=== PATIENT | female | born 1935 | race Caucasian/White ===

== ENCOUNTER 2020-02-12 03:01 | Inpatient (IN) | payer OTHER ==
[~2020-02-12] VITALS: Ht 170.2 cm; Wt 57.6 kg
[~2020-02-12 03:01] MED LIST: COUMADIN 10MG T10 M1 PO; COUMADIN 1MG TAB1 M1 PO; FUROSEMIDE 40 M40 M1 PO; HYDROCODONE-AP1 EACH PO; K-DUR 20 MEQ T20 MEQ PO; LOVENOX; LOVENOX SC; NORCO 10-325 T1 EACH PO; NORCO 5-325 TA1 EACH PO; POTASSIUM20; RESTORIL30 MG PO; TYLENOL 3; WATER PILL
[2020-02-12 03:04] VITALS: BP 164/84
[2020-02-12 05:37] LABS: APTT 19.1 Seconds (24.5-32.8); PROTIME 9.5 Seconds (9.3-11.4)
[2020-02-12 05:40] LABS: ABSOLUTE NEUTROPHILS 4.7 thou/uL (1.4-8.2); BASOPHILS 0.9 % (0.0-2.0); CALCIUM 9.3 mg/dL (8.5-10.1); CREATININE 0.9 mg/dL (0.6-1.0); EOSINOPHILS 3.2 % (0.0-3.0); HEMATOCRIT 43.4 % (37.0-47.0); HEMOGLOBIN 14.3 gm/dL (12.0-15.0); LYMPHOCYTES 24.3 % (24.0-44.0); MCH 31.6 pg (26.0-34.0); MCHC 32.9 g/dL (28.0-37.0); MCV 96.2 fL (80.0-100.0); MONOCYTES 9.1 % (1.0-8.0); PLATELET COUNT 262 thou/uL (150-400); POLYS 62.5 % (36.0-66.0); POTASSIUM 3.9 mmol/L (3.5-5.1); RBC 4.51 mil/uL (4.20-5.00); RDW 13.3 % (10.5-14.5); WBC 7.5 thou/uL (4.0-11.0)
[2020-02-12 06:17] VITALS: BP 133/61
[2020-02-12 07:13] VITALS: BP 133/65
[2020-02-12 07:54] VITALS: BP 128/71
[2020-02-12 11:31] VITALS: BP 128/71
== END 2020-02-12 12:16 | disposition home or self-care (01) | DRG 560 ==
LOC: ER 03:01 → EROBS 05:28 → 4S 07:26
PROVIDERS: Emergency Medicine; ADMIT Hospitalist; ATTEND Hospitalist
PROC: 0SSBXZZ Reposition Left Hip Joint, External Approach (ICD-10-PCS; principal; 2020-02-12)
DX: T84.021A Dislocation of internal left hip prosthesis, initial encounter (principal); E87.1 Hypo-osmolality and hyponatremia; Z96.643 Presence of artificial hip joint, bilateral; F32.9 Major depressive disorder, single episode, unspecified; Z96.642 Presence of left artificial hip joint; E78.5 Hyperlipidemia, unspecified; Z90.710 Acquired absence of both cervix and uterus; Z95.828 Presence of other vascular implants and grafts; Z86.711 Personal history of pulmonary embolism; Z86.718 Personal history of other venous thrombosis and embolism; Z87.891 Personal history of nicotine dependence; W18.39XA Other fall on same level, initial encounter; Y93.89 Activity, other specified; Y92.89 Other specified places as the place of occurrence of the external cause; Y99.8 Other external cause status
CPT/HCPCS: 10195

== ENCOUNTER 2020-09-25 14:01 | Inpatient (IN) | payer OTHER ==
[2020-09-25 14:38] VITALS: BP 138/68
--- NOTE | 2020-09-25 15:40 | NUR ---
PATIENT 85 YEAR OLD FEMALE ARRIVING TO [facility] - FROM [facility]. PSYCHIATRIC PROBLEM IS DEMENTIA WITH COMBATIVENESS WITH STAFF, REFUSING MEDICATIONS, ATTEMPTING MULTIPLE ELOPEMENTS, NOT SLEEPING AT NIGHT AND VOICING THAT SHE HAD BEEN KIDNAPPED FROM LIVING AT HOME. PATIENT EXTREMELY CONFUSED AND DISCONTENTED WITH FACILITY SHE WAS AT. PATIENT ALERT TO SELF - AMBULATORY - WANDERS ABOUT UNIT FIXATED ON DEPARTING. PATIENT DID NOT KNOW WHAT YEAR IT WAS 1968 AND PRESIDENT MIRIAM IN OFFICE. VERY CONFUSED - ASSESSED AND HEART STRONG AND STEADY. LUNGS CLEAR ON AUSCULTATION. LOWER EXTREMITIES BILATERALLY HAVE RASH AND DISCOLORATION. STATES EXTREMELY ITCHY. PATIENT AMBULATORY - SELF CARE - NO PAIN WHEN ASSESSED. PATIENT SEEN BY NURSE PRACTIONER AND DR. YANCEY. ORDERS PLACED AND MEDICATIONS PLACED.
[2020-09-25 20:57] VITALS: BP 152/85
--- NOTE | 2020-09-26 04:30 | NUR ---
PT CONTINUOUSLY REQUESTED TO "GET OUT" AND "GO HOME". PT HAS HX OF ELOPEMENT RISK. AFTER CALMING PT DOWN AND GETTING HS MEDS TO HER, SHE EVENTUALLY WENT TO BED FOR THE MOST OF THE NIGHT. REMAINS ALERT TO SELF. WILL CONTINUE TO MONITOR.
[2020-09-26 06:10] LABS: CHOLESTEROL 216 mg/dL (<200); HDL CHOLESTEROL 74 mg/dL (>40); LDL CHOLESTEROL 127 mg/dL (<100); TC:HDL 2.9 Ratio (Not establshd); TRIGLYCERIDE 79 mg/dL (<150); VLDL 16 mg/dL (<40)
[2020-09-26 06:11] LABS: SERUM ASSESSMENT Clear
[2020-09-26 07:12] LABS: FOLIC ACID 54.2 ng/mL (8.6-58.9)
[2020-09-26 09:24] VITALS: BP 122/63
[2020-09-26 13:11] VITALS: BP 122/63
--- NOTE | 2020-09-26 15:41 | NUR ---
Assumed pt care at 0700. pt was in the day room alert. Alert and oriented to self. Assessments completed, vss. Denies si/hi, denies pain. Took meds whole, no difficulty noted. Pt IS VERBALLY aggressive, pt redirected. Pt ambulates with a steady gait. Pt lyes on the day room couch. pt was redirected. No sign of acute distress noted upon assessments. Pt family visited and pt got irritable. pt was redirected. AMBULATES THE UNIT HALLWAY. at THIS TIME PT IS IN THE DAY ROOM. wILL CONTINUE TO MONITOR.
--- NOTE | 2020-09-26 17:31 | NUR ---
2424 PATIENT WAS BEING INTRUSIVE DURING VISITING HOURS INTERUPTING OTHER PATIENTS VISIT. WE TRIED TO REDIRECT PATIENT SHE BECAME AGGRESSIVE HITTING STAFF AND SCREAMING. WE HAD TO CALL SECURITY TO HELP WITH GETTING PATIENT TO HER ROOM. I CALLED [employer] SERVICER [employer] SHE GAVE ME AN ORDER FOR OLANZAPINE 5 MG TO HELP CALM DOWN. WILL CONTINUE TO MONITOR PATIENT FOR SAFETY AND BEHAVIORS.
[2020-09-26 20:29] VITALS: BP 167/50
[2020-09-26 20:31] VITALS: BP 163/74
[2020-09-27 05:36] LABS: GLYCOHEMOGLOBIN (HGB A1C) 5.6 % (4.8-5.6)
--- NOTE | 2020-09-27 06:14 | NUR ---
09-26-20 CARE TRANSFERRED 0. LATER PT AAOX2, VSS, RR EVEN AND NONLABORED ON RA. PT DENIED PAIN AND SI/HI. PT REMAINED CALM AND COOPERATIVE DURING NURSING ASSESSMENT. DURING MEDICATION ADMIN PT REFUSED MEDICATION REPORTING "WE ARE TRYING TO KILL HER" PT PRESENTS AGITATED WITH IRRITABLE, A 2ND ATTEMPT AND PT AGITATION INCREASED. HCP Young MENSAH, INSTRUCTOR OF NURSING CONTACTED AND ORDERS RECEIVED. PT HAS BEEN COOPERATIVE AND REMAINED CALM AND SAT QUIETLY IN DAY ROOM. PT WILL CONTINUE TO BE MONITOR PER [facility] PROTOCOL.
[2020-09-27 08:00] VITALS: BP 142/74
--- NOTE | 2020-09-27 12:29 | NUR ---
SITTIING ALONE WITH BACK TO [facility]ERS AND NOT INTERACTING WITH OTHERS -INITIALLY WAS ABRUPT,IRRITABLE WITH THIS NURSEEXPRESSING FRUSTRATION OVER AMOUNT OF QUESTIONS ASKED. "CAN'T YOU READ THE LAST GIRLS NOTE"DESCRIBES MOOD "GOOD" AND DENIES SI/SH/HI. AFFECT IS NOTED TO BE CONSTRICTED-HOWEVER WAS BRIGHTER CONVERSATION PROGRESSED WITH THIS NURSE. COMPLIENT WITH MEDS. DENIES C/O PAIN. RESPONSES ARE
--- NOTE | 2020-09-27 16:51 | NUR ---
CONTINUES TO BE WITHDRAWN-STAYING MOSTLY IN ROOM OR SITTING IN BACK OF GROUP ROOM BY SELF. CONTINUES TO DENY COMPLAINTS.GAIT STEADY. APPETITE GOOD. DID APPROACH DESK BEFORE SUPPER UPSET THAT ROOMATE HAD BEEN BROUGHT TO ROOM AND WAS SNORING.-OTHERWISENO ACUTE AGITATION OR BEHAVIORAL ISSUES NOTED
--- NOTE | 2020-09-27 17:56 | NUR ---
SW completed psychosocial assessment and tx plan. SW team will remain available while on the unit.
[2020-09-27 20:15] VITALS: BP 138/65
[2020-09-27 20:30] VITALS: BP 138/65
--- NOTE | 2020-09-28 01:25 | NUR ---
PATIENT WAS UP IN THE DINING ROOM THIS EVENING. SHE WAS ANXIOUS AND FRUSTRATED BECAUSE OF ANOTHER PATIENT THAT HAS BEEN HOLLERING ALL DAY AND CONTINUING. PATIENT REMAINED CALM. SHE TOOK HER HS MEDS WHOLE WITH WATER. SHE WAS COOPERATIVE. SHE NEEDED TO BE SHOWN HER ROOM. SHE IS A/0X1-2. SHE IS CONTINENT. SHE WALKS WITH STEADY GAIT. DENIES SI/HI/AVH. ROUTINE ROUNDS TO ASSESS SAFETY AND STATUS OF PATIENT.
[2020-09-28 08:43] VITALS: BP 152/63
--- NOTE | 2020-09-28 11:29 | NUR ---
Nutrition: pt admitted to H unit dx dementia with behaviors. Pt voices stable weights. Weight trends per hx showing increase since 2020. Will follow trends. Intake highly variable but averaging > 60% of meals. Noted HLD. Cholesterol 216, LDL 127. If pt consistently eating > 75% of meals, consider heart healthy diet. Pt voices no nutrition concerns. Low risk.
--- NOTE | 2020-09-28 14:08 | NUR ---
HORACE contacted [facility] and obtained the fax number of [phone] to send updates. HORACE faxed updates. SW team will continue to follow pt during her stay on this unit.
--- NOTE | 2020-09-28 14:29 | NUR ---
REFUSED AM MEDICATIONS AND ASSESSMENT. IRRITABLE/DYSPHORIC MOOD-MULTIPLE NEGATIVE COMMENTS DURING BREAKFAST AND GROUP TIME-NO INIGHT INTO OWN BEHAVIORS STATING "THE ONLY PROBLEM I HAVE IS BEING HERE-I WAS JUST FINE UNTIL I GOT TO THIS PLACE" ANGRY FACIAL EXPRESSION. SMELLS STRONGLY OF BODY ODOR. CONTINUES TO REFUSE MEDICATIONS DESPITE MULTIPLE ATTEMPTS DESPITE BEING TOLD THAT IT WAS ORDERED THAT SHE GET A SHOT IF SHE CONTINUED TO REFUSE. SECURITY CONTACTED AT 1330 AND ZYPREXA 5MG ADMINISTERD IM IN LEFT DELTOID-YELLING LOUDLY DURING SHOT. DID REQUEST TO GO BACK TO ROOM AND ESCORTED TO ROOM BY NURSING STAFF.
[2020-09-28 19:48] VITALS: BP 162/74
--- NOTE | 2020-09-29 03:04 | NUR ---
PATIENT HAS BEEN SLEEPING ALL SHIFT SINCE ASSUMED CARE AT 1900. PATIENT WAS VERY SEDATED FROM INJECTION EARLIER IN DAY AND WAS NOT ABLE TO TAKE HER HS MEDS. HER VSS. AND RESPIRATIONS EVEN AND UNLABORED. NO BEHAVIORS TONIGHT.
[2020-09-29 09:21] VITALS: BP 142/70
--- NOTE | 2020-09-29 18:30 | NUR ---
Assumed patient care at 0700, sitting in the day room, patient was unpleasant, stated she does't belong here and will like to leave, she refused all her morning meds,doctor notify, IM was given, son visited in the morning and told the nurse that his mother said "she will kill herself by taking lots of pills" two of her daughters came to visit and she refused to visit with them. Assessment completed, lungs clear, bs active, vss. patient denies si/hi at this time, will cntinue to monitor
[2020-09-29 19:51] VITALS: BP 143/61
--- NOTE | 2020-09-30 05:18 | NUR ---
09-29-20 CARE TRANSFERRED 1899. LATER PT AAOX3, VSS RR EVEN AND NONLABORED ON RA. PT DENIES SI/HI AND PAIN. PT PRESENTS PLESANT, CALM AND COOPERATIVE. PT REPORTS SHE IS READY TO LEAVE HOSPITAL. DURING MEDICATION ADMIN PT HAD NO DIFFICULTIES TAKING MEDICATION WHOLE WITH WATER. PT ATE 100% OF HS SNACK. LATER PT AWOKE AND HAD PICKED SCABBED ON NOSE, SUPERFICIAL WOUND, CLEANED WITH NS AND COVERED WITH CLEAN BANDAID, PT WAS A LITTLE CONFUSED AND THOUGHT WE WERE AT A HOTEL, PT WAS EASILY REORIENTED TO HOSPITAL, AND STATED "I MUST HAVE BEEN DREAMING, WAS GETTING READY TO GO TO A CONSERT". PT BED WAS ADJUSTED FOR COMFORT, LOCKED, LOWEST POSITION AND ALARM ON. PT WILL CONTINUE TO BE MONITOR PER [facility] PROTOCOL.
[2020-09-30 08:29] VITALS: BP 136/76
[2020-09-30 12:04] LABS: ALBUMIN 3.2 g/dL (3.4-5.0); CREATININE 0.9 mg/dL (0.6-1.0); POTASSIUM 4.4 mmol/L (3.5-5.1); TOTAL BILIRUBIN 0.2 mg/dL (0.2-1.0); TOTAL PROTEIN 6.9 g/dL (6.4-8.2)
--- NOTE | 2020-09-30 18:16 | NUR ---
0700 ASSUMED CARE OF PATIENT, PATIENT IN BED AT THAT TIME. PATIENT AMB WITH WITH STEADY GAIT, OUT TO DAYROOM FOR BREAKFAST. MEDICATION TAKEN WHOLE WITHOUT DIFFICULTY. PATIENT DENIES PAIN, LS CLEAR, BS ACTIVE. PATIENT CALM AND COOPERATIVE THIS AM. PATIENT AGREES TO ACCEPT VISITORS TODAY. REQUEST A SHOWER, SHOWER COMPLETED THIS AFTERNOON. PATIENT SITTING QUIETLY AT TABLE AT THIS TIME. VS 136/76, 67, 18, 97.3, 94% DENIES SI/HI.
[2020-09-30 19:55] VITALS: BP 148/63
--- NOTE | 2020-10-01 05:11 | NUR ---
09-30-20 CARE TRANSFERRED 1899. LATER PT AAOX2, VSS, RR EVEN AND NONLABORED ON RA. PT DENIES SI/HI AND PAIN. PT PLEASANT, CALM AND COOPERATIVE. DURING MEDICATION PT HAD NO DIFFCULTIES. PT WILL CONTINUE TO BE MONITR PER [facility] PROTOCOL.
[2020-10-01 09:59] VITALS: BP 149/82
--- NOTE | 2020-10-01 11:59 | NUR ---
RT Progress Note- Clair has made advances towards goals this week. She has been present in most recreation therapy groups and is tolerating of discussion (whereas upon admission, she would respond irritably.) Clair is able to participate in groups with occasional reorienting and prompting. NATIONAL SALES MANAGER will encourage continued participation and progress towards goals.
--- NOTE | 2020-10-01 13:25 | NUR ---
Assumed pt care at 0700. pt was in her room awake. ALERT and oriented to person. Assessments completed, vss. active bowel sound, denies si/hi denies pain.Took meds whole, no difficulty noted. Ambulates with a steady gait. Calm and cooperative with care. Makes need known to staff. pt was confused and irritable during lunch but was redirected. No sign of acute distress noted upon assessments. No Bowel Movement noted this shift. Pt family visited during [id number] VISITING hOURS. At this time pt is in the day room. WILL CONTINUE TO MONITOR PT.
[2020-10-01 19:33] VITALS: BP 135/66
[2020-10-01 19:40] VITALS: BP 135/66
--- NOTE | 2020-10-02 00:14 | NUR ---
Assumed care on 10/01/20 @ 1900, pleasant, oriented to person and almost got the date correct, saying the year is 1970. I am Waivering back and forth with alzheimers. also reports I don't have a colon, it is stitched the two ends together. Reports has had ice cream for a snack. Takes meds whole and provided Tylenol 650mg for 6/10 general pain. HRRR, Lungs CTA, ABD n x 4Q, reports BM on 10/01/20.
[2020-10-02 10:21] VITALS: BP 153/82
--- NOTE | 2020-10-02 10:51 | NUR ---
0700 ASSUMED CARE OF PATIENT, PATIENT IN BED AT THAT TIME. AMB TO DAYROOM WITH STEADY GAIT. DENIES NEEDS, PATIENT CALM, MED COMPLIANT. ATE 95% OF BREALFAST. PATIENT CALM AND COOPERATIVE. NO GOALS OR CONCERNS VOICED. PATIENT CALM AT THIS TIME.
--- NOTE | 2020-10-02 17:38 | NUR ---
[facility][phone][facility] regarding discharge for pt. Informed pt. will be discharged Monday. Transportation will be arranged by through [employer]. Phone call to [facility] arranging transportation for pt. for Monday at 11:00am. Confirmation # [phone]
--- NOTE | 2020-10-02 19:01 | NUR ---
PATIENT TO NURSES STATION ASKING TO LEAVE AND ASKING HOW MUCH MONEY IS OWED. PATIENT STATES "THEY DID NOT HAVE A BED FOR ME SO I NEED TO GET OUT OF HERE". RN REORIENTED PATIENT, PATIENT CONFUSED AND UNABLE TO UNDERSTAND AT THIS TIME. PATIENT GIVEN ROOM NUMBER AND WAS OK WITH THAT. DENIES NEEDS AT THIS TIME.
[2020-10-02 19:09] VITALS: BP 152/85
[2020-10-02 21:57] VITALS: BP 152/85
[2020-10-03 08:00] VITALS: BP 150/74
--- NOTE | 2020-10-03 13:33 | NUR ---
PATIENT CARE ASSUMED BY 0700, WAS IN BED SLEEPING AND LATER CAME OUT FOR BREAKAST, AMB WITHOUT ANY DEVICE, ALERT TO SELF AND DISORIENTED TO PLACE AND TIME WHEN ASKED, ATE 100% OF HER MEALS, TOOK MEDICATION WHOLE, SHE WAS CALM AND PLEASANT DURING ASSESSMENT, LUNGS CLEAR, BS ACTIVE, DENIES SI/HI.
[2020-10-03 19:21] VITALS: BP 141/50
--- NOTE | 2020-10-03 23:23 | NUR ---
RESUMED PATIENT CARE AT 1900, PATIENT LYING IN BED AT THAT TIME. EYES CLOSED, THOUGH EASILY AWOKEN. SAT UP ON SIDE OF BED FOR ASSESSMENT AND TOOK MEDS WHOLE WITHOUT DIFFICULTY. DENIES PAIN/SI/HI. DOES C/O OF SOME SADNESS AND DEPRESSION AND STATES "I JUST WANT TO GO HOME". PATIENT A&OX1, PLEASANT AND COOPERATIVE.
[2020-10-04 08:52] VITALS: BP 123/53
[2020-10-04 09:38] VITALS: BP 123/53
--- NOTE | 2020-10-04 11:55 | NUR ---
PATIENT CARE ASSUMED AT 0700 - SITTING IN DINING TATUM AT CHANGE OF SHIFT. PATIENT STATED HAD GOOD NIGHT. WAS HESITANT TO [facility] POSITIVITY ABOUT BEING DISCHARGED TOMORROW. ATE WELL FOR BREAKFAST - COMPLIANT WITH MEDICATIONS. HEART RATE STRONG AND STEADY. LUNGS CLEAR ON AUSCULTATION - EDEMA NOTED BILATERALLY ON LOWER EXTREMITIES- PATIENT HAS NO PAIN DISCOMFORT - HAD BOWEL MOVEMENT 10/03/20 - WILL CONTINUE TO MONITOR PATIENT FOR SAFETY AND TO ADDRESS ANY CONCERN THAT MAY DEVELOP.
[2020-10-04 19:39] VITALS: BP 117/65
[2020-10-04 20:00] VITALS: BP 117/65
--- NOTE | 2020-10-05 03:22 | NUR ---
PATIENT SAT UP IN DINING ROOM THIS EVENING AND STAYED TO HERSELF. SHE WAS CALM UNTIL ASKED HOW SHE WAS DOING AND SHE BEGAN STATING THAT SHE NEEDED TO GO HOME. EXPLAINED THAT SHE WOULD BE DISCHARGING TOMORROW IF ALL WENT WELL TONIGHT. SHE CALMED AND TOOK HER MEDS. SHE DENIES PAIN. NO SI/HI/AVH NOTED. PT DID ASK FOR SOMETHING FOR SLEEP. SHE WAS GIVEN PRAMIPEXOLE 1MG PO AT HS FOR RESTLESS LEG. SHE HAS BEEN UP A COUPLE OF TIMES IN NIGHT AND WALKED OUT INTO TATUM AND IN ROOM AND THEN BACK TO BED. SHE IS A/0X 1-2. SHE AMBULATES ON HER OWN AND IS STEADY ON HER FEET. ROUTINE ROUNDS TO ASSESS SAFETY AND STATUS OF PATIENT.
[2020-10-05 08:51] VITALS: BP 149/73
[2020-10-05] MEDS ORDERED: ARICEPT10 M1 PO (08:58)
[2020-10-05] MEDS ORDERED: LIPITOR40 MG PO (08:59)
[2020-10-05] MEDS ORDERED: BAYER CHEWABLE81 MG PO (09:00)
[2020-10-05] MEDS ORDERED: DEPAKOTE SPRIN125 MG PO (09:02)
[2020-10-05] MEDS ORDERED: ZOLOFT 50 MG TA50 MG PO (09:02)
[2020-10-05] MEDS ORDERED: K-DUR 20 MEQ T20 MEQ PO (09:03)
[2020-10-05] MEDS ORDERED: SEROQUEL 25 MG25 M1 PO (09:03)
[2020-10-05] MEDS ORDERED: CALTRATE-600 W1 EACH PO (09:04)
[2020-10-05] MEDS ORDERED: LASIX 40 MG TAB40 M1 PO (09:04)
[2020-10-05] MEDS ORDERED: VITAMIN D325 MC1 PO (09:05)
--- NOTE | 2020-10-05 12:45 | NUR ---
OHRACE D/C NOTE HORACE faxed discharge docs to [facility]. SW will file docs and confirmation pg in pt's hospital file. No other needs for SW team to address at this time.
--- NOTE | 2020-10-05 15:02 | NUR ---
Assumed pt care at 0700. pt was in her room sleeping. Alert and oriented to person and situation. Denies si/hi, Denies pain . Ambulates with a steady gait. Took meds whole, no difficulty noted. Calm and cooperative with care at assessments. 1120 pt was d/c with belongings, d/c instruction, d/c summary and labs. AT 1047 Report was called to Iliana at [facility]. AT 1422 d/c instruction was faxed per request from [facility]. WITH FULL INSTRUCTION FROM [employer]. pt was transport by [employer].
--- NOTE | 2020-10-06 00:23 | D ---
[facility] [place] [address] DISCHARGE SUMMARY Name: JOHN RANDALL Room #: 523B-[facility] IN M.R.#: [id number] Admission: 09/25/20 Attend Phys: Maryan Pruitt MD Discharge: 10/05/20 Date of : 39 Report #: [id number] THIS REPORT FOR: cc: [facility] - [facility] physician unknown [facility] - Clinic physician unknown Gume Wilson DO ~ DATE OF SERVICE: 10/05/2020 INPATIENT PSYCHIATRIC DISCHARGE SUMMARY ATTENDING PSYCHIATRIST: At the time of discharge, Gume Wilson DO GUI DEVELOPER: At time of discharge, Jaquelin Hernandez M.D. 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 MEDICAL COMORBIDITIES: As follows: History of depression, anxiety, hypertension, history of DVT, PE, status post IVC filter, history of recurrent falls, hyperlipidemia. The patient is discharging to [facility] to be performed by receiving facility. The patient requires memory care. This is a long-term care placement. ACTIVITY LEVEL: As tolerated. DIET: Regular diet. DISCHARGE MEDICATIONS: Are as follows: Donepezil 10 mg oral at bedtime for cognitive enhancement, atorvastatin 40 mg oral at bedtime for hyperlipidemia, aspirin 81 mg oral daily for heart protection, Depakote sprinkles 250 mg oral twice daily for mood stabilization, sertraline 125 mg oral daily for depression, Seroquel 25 mg oral twice daily for mood stabilization, potassium chloride 20 mEq p.o. daily for supplementation, Lasix 40 mg oral daily for hypertension, calcium carbonate with vitamin D3, Caltrate 600 with vitamin D 1 tab twice daily, cholecalciferol 1000 International Units oral daily for supplementation. LABORATORY DATA: Significant laboratories this admission, hematology on 09/25, H and H 13.3 and 39.7, white count 5.6, platelet count 204. Chemistry: Sodium 142, potassium 4.4, chloride 107, bicarbonate 28, anion gap 7, BUN 15, creatinine 0.9, estimated GFR 60, glucose 102. A1c 5.6, calcium 9, total bilirubin 0.2, direct bilirubin less than 0.1, AST 20, ALT 24, alkaline phosphatase 103. CK 155. Ammonia less than 10. The CK and troponin were old labs, so we canceled those. Additional laboratories; albumin 3.2, total protein 6.9, triglycerides 79, total cholesterol 216, LDL 127. Vitamin B12 429. Folate 54.2. TSH 2.244. Urinalysis showed trace ketones, otherwise normal. Toxicology was negative. Depakote level was 46 on 10/01. COVID-19 Iniguez serology was negative on 09/25. [address] [address] DISCHARGE SUMMARY Name: JOHN RANDALL Room #: 523B-B [facility] IN M.R.#: [id number] Admission: 09/25/20 Attend Phys: Maryan Pruitt MD Discharge: 10/05/20 Date of : 39 Report #: [id number] REASON FOR ADMISSION: Back on 09/25 or so, 85-year-old female sent out from [facility] due to refusing medications, increasing combativeness with care, is not eating. HOSPITAL COURSE: The patient was admitted to Geriatric Psychiatry Unit. She was continued on Seroquel 12.5 mg p.o. b.i.d., which was further titrated to 25 mg b.i.d., sertraline continue at [address] Pruitt resumed her care on 09/28. Initially, she had been aggressive over the first weekend of admission, she did not have recollection of this. As the week progressed, she felt improved. Not angry at her family. No aggressive behaviors. CONDITION AT DAY OF DISCHARGE: Stable. Not suicidal or homicidal. VITAL SIGNS: At time of discharge, temperature 36.3, pulse 61, respirations 17, BP 149/73, O2 sat 97%. MUSCULOSKELETAL: Normal gait and station. MENTAL STATUS EXAMINATION: This is a well-developed, fairly well-nourished female appearing stated age. Attention limited. Concentration limited. Speech normal rate, volume, and tone. Thought process: Linear and goal directed. Thought content, she is discharging to [place], [place]. I did not argue this point as the patient is clearly demented. Denied suicidal or homicidal ideation. Denied auditory, visual, or tactile hallucinations. Denied hopelessness, helplessness. Memory known to be impaired. Insight impaired. Judgment very limited. Fund of knowledge below average. Prognosis for this patient is guarded, given age of 85, having a progressive neurodegenerative disorder and a few medical comorbidities. <ELECTRONICALLY SIGNED> By: Gume Wilson DO 10/06/20 0023 [id number] Gume Wilson DO /nt
== END 2020-10-05 11:20 | DRG 57 ==
LOC: SBH
PROVIDERS: ADMIT Psychiatry & Neurology Psychiatry; ATTEND Psychiatry & Neurology Psychiatry
DX: G30.9 Alzheimer's disease, unspecified (principal); F02.81 Dementia in other diseases classified elsewhere, unspecified severity, with behavioral disturbance; F32.9 Major depressive disorder, single episode, unspecified; E78.5 Hyperlipidemia, unspecified; F41.9 Anxiety disorder, unspecified; I10 Essential (primary) hypertension; Z96.642 Presence of left artificial hip joint; Z86.718 Personal history of other venous thrombosis and embolism; Z86.711 Personal history of pulmonary embolism; Z88.7 Allergy status to serum and vaccine; Z90.710 Acquired absence of both cervix and uterus; Z87.891 Personal history of nicotine dependence
CPT/HCPCS: 10880